=== PATIENT | female | born 1980 | race Caucasian/White ===

== ENCOUNTER 2019-04-04 01:46 | Emergency (ER) | payer OTHER ==
[~2019-04-04] VITALS: Ht 167.6 cm; Wt 83.5 kg
[~2019-04-04 01:46] MED LIST: ANTIVERT25 MG PO; AUGMENTIN 875875 MG PO; BENTYL 10 MG CA10 MG; CIPRO250 M1 PO; IRON325; NORCO 5-325 TA1 EACH PO; ONDANSETRON HCL4 M2 PO; PHENERGAN 25 MG25 M1 PO; PHENERGAN 25 MG25 MG PO; SERTRALINE HCL50 MG; TRINATE TABLET1 TAB
[2019-04-04 05:19] VITALS: BP 95/52
--- NOTE | 2019-04-04 20:08 | EKG ---
[place] [address] ELECTROCARDIOGRAM REPORT Name: BETSY HARTMANN Room: 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
== END 2019-04-04 05:21 | disposition home or self-care (01) ==
LOC: M.ERS 01:46
DX: R51 Headache (principal); F32.9 Major depressive disorder, single episode, unspecified